=== PATIENT | female | born 1970 | race African-American/Black ===

== ENCOUNTER 2020-08-04 14:06 | Inpatient (IN) | payer OTHER ==
[~2020-08-04] VITALS: Ht 170.2 cm; Wt 130.2 kg
[2020-08-04] MEDS ORDERED: PIPERACILLIN-TAZOB 3.375GM 100 ML IV ONE (15:00)
[2020-08-04] MEDS ORDERED: MORPHINE SULFATE 4 MG/ML SYR/VIAL IV ONE (15:00)
[2020-08-04] MEDS ORDERED: SODIUM CHLORIDE 0.9% 1,000 ML IVB ONE (15:00)
[2020-08-04] MEDS ORDERED: ONDANSETRON HCL 4 MG/2 ML VIAL IV ONE (15:00)
[2020-08-04 15:24] LABS: Basophils # (auto) 0 10 ^3/uL (0-0.2); Basophils % (auto) 0.3 % (0.0-2.0); Eosinophils # (auto) 0 10 ^3/uL (0-0.8); Eosinophils % (auto) 0.3 % (0.0-7.0); Hematocrit 39.3 % (36.0-46.0); Hemoglobin 13.3 g/dL (12.2-16.2); Lymphocytes # (auto) 1.8 10 ^3/uL (0.4-5.4); Lymphocytes % (auto) 15.1 % (10.0-50.0); Mean Corpuscular Hemoglobin 28.5 pg (28.0-32.0); Mean Corpuscular Hgb Conc. 33.9 g/dL (32.0-36.0); Mean Corpuscular Volume 84.2 fL (80.0-100.0); Monocytes # (auto) 0.8 10 ^3/uL (0-1.3); Monocytes % (auto) 6.9 % (0.0-12.0); Neutrophils % (auto) 77.4 % (37.0-80.0); Nucleated Red Blood Cells % 0.2 %; Platelet Count (auto) 279 10^3/uL (140-450); Red Blood Cells 4.66 10^6/uL (4.0-5.20); Red Cell Distribution Width 14.7 % (11.8-14.3); White Blood Cell 11.6 10^3/uL (4.4-10.8)
[2020-08-04] MEDS ORDERED: LORazepam 0.5 MG TAB PO PRN (15:30)
[2020-08-04] MEDS ORDERED: MORPHINE SULF INJ 2 MG/ML SYRINGE 1ML IV PRN ×2 (15:30)
[2020-08-04] MEDS ORDERED: cefTRIAXone 1GM/50ML D5W 50 ML IV ONE ×2 (15:30→16:51)
[2020-08-04] MEDS ORDERED: metroNIDAZOLE 500MG/100ML 100 ML IV ONE (15:30)
[2020-08-04] MEDS ORDERED: NITROGLYCERIN 0.4 MG SL TAB SL PRN ×2 (15:30)
[2020-08-04] MEDS ORDERED: DOCUSATE SOD 100 MG CAP PO PRN (15:30)
[2020-08-04] MEDS ORDERED: HYDROcodone-ACET 5/325MG TAB PO PRN (15:30)
[2020-08-04] MEDS ORDERED: ACETAMINOPHEN 325 MG TAB PO PRN (15:30)
[2020-08-04] MEDS ORDERED: LACTATED RINGER'S 1,000 ML IV ONE (15:30)
[2020-08-04] MEDS ORDERED: ALUM & MAG HYDROX-SIMETH LIQ(MAALOX) 30 ML PO PRN (15:30)
[2020-08-04] MEDS ORDERED: ONDANSETRON HCL 4 MG/2 ML VIAL IV PRN (15:30)
[2020-08-04 15:33] LABS: Albumin 3.3 g/dL (3.4-5.0); Calcium 8.7 mg/dL (8.5-10.1); Potassium 4.6 mmol/L (3.5-5.1)
[2020-08-04 15:35] LABS: Urine Bacteria NONE SEEN /hpf (None Seen); Urine Blood Negative /uL (Negative); Urine Mucus FEW (None Seen); Urine Specific Gravity 1.018 (1.001-1.035); Urine WBC 1 /hpf (0 - 5)
[2020-08-04 15:36] LABS: BUN/Creatinine Ratio 11.2; Bilirubin, Total 0.7 mg/dL (0.2-1.0); Total Protein 7.7 g/dL (6.4-8.2)
[2020-08-04 15:39] LABS: INR 1.06 (0.9-1.15); Partial Thromboplastin Time 26.6 sec (23.0-31.2)
[2020-08-04] MEDS ORDERED: LACTATED RINGER'S 1,000 ML IV SCH (15:45)
[2020-08-04] MEDS ORDERED: INSUINJ2 SC (17:26)
[2020-08-04] MEDS ORDERED: IBUP800T24 PO (17:26)
[2020-08-04] MEDS ORDERED: INSREG3 SC (17:26)
[2020-08-04] MEDS ORDERED: AMLO5TAB15 PO (17:26)
[2020-08-04] MEDS ORDERED: CHOL20007 PO (17:26)
[2020-08-04] MEDS ORDERED: AMOX500C2 PO (17:26)
[2020-08-04] MEDS ORDERED: LEVO200T7 PO (17:26)
[2020-08-04] MEDS: D5W/SOD CHLO 0.9% 1,000 ML IV SCH (17:33)
[2020-08-04 18:47] LABS: Alcohol, Urine < 3.0 mg/dL (0-10); Amphetamine Screen, Urine NEGATIVE (NEGATIVE); Barbiturate Scree,Urine NEGATIVE (NEGATIVE); Benzodiazephine Screen, Urine NEGATIVE (NEGATIVE); Cannabinoid Screen, Urine NEGATIVE (NEGATIVE); Cocaine Screen, Urine NEGATIVE (NEGATIVE); Opiate Scree,Urine NEGATIVE (NEGATIVE); Phencyclidine Screen, Urine NEGATIVE (NEGATIVE)
[2020-08-04] MEDS: MORPHINE SULF INJ 2 MG/ML SYRINGE 1ML IV PRN ×2 (19:02→23:48)
[2020-08-04 19:55] LABS: Cholesterol 245 mg/dL (< 200)
[2020-08-04 20:00] LABS: HDL Cholesterol 61 mg/dL (40-59); LDL Cholesterol 154 mg/dL (< 100); Triglycerides 161 mg/dL (< 150)
--- NOTE | 2020-08-04 20:15 | NUR ---
Telemetry admit from ER DARRYNBELLE admitted to Telemetry unit after no SBAR received. Patient oriented to RYAN SABA RN primary RN, [facility] room 217B, and unit policies regarding patient care and visiting hours. Patient now on continuous telemetry monitoring, tele box #[id number] and telemetry reading on arrival to unit is 92bpm. Patient placed on room air, weighed by bedscale and encouraged to call if they need something. All questions and concerns addressed, patient verbalized understanding.
[2020-08-04] MEDS ORDERED: DEXTROSE (50%) 50ML SYRG IV PRN (20:30)
[2020-08-04] MEDS ORDERED: hydrALAZINE HCL 20 MG/ML VL IV PRN (20:45)
[2020-08-04 20:49] VITALS: BP 133/72
[2020-08-04] MEDS: metroNIDAZOLE 500MG/100ML 100 ML IV SCH (21:01)
[2020-08-04] MEDS: ATORVASTATIN 20 MG TAB PO SCH (21:02)
[2020-08-04] MEDS ORDERED: INFLUENZA QUAD 2020-2021 0.5 ML SYRG IM ONE (21:15)
[2020-08-04 21:56] VITALS: BP 133/72
[2020-08-04 22:00] VITALS: BP 133/72
[2020-08-04] MEDS ORDERED: PIPERACILLIN-TAZOB 3.375GM 100 ML IV SCH (22:00)
[2020-08-04] MEDS: IPRATROPIUM BROM 0.5 MG/2.5ML INH SOL NEB SCH (22:39)
[2020-08-04] MEDS: ACCU-CHEK COMFORT CURVE STRIP VI SCH (23:56)
[2020-08-04] MEDS: InsuLIN REG 1unit/0.01ml Soln (100units/ml) SC SCH (23:56)
[2020-08-05] MEDS: IPRATROPIUM BROM 0.5 MG/2.5ML INH SOL NEB SCH ×6 (02:29→22:16)
[2020-08-05 05:00] VITALS: BP 141/81
[2020-08-05] MEDS: D5W/SOD CHLO 0.9% 1,000 ML IV SCH ×2 (05:06→16:46)
[2020-08-05] MEDS: ACCU-CHEK COMFORT CURVE STRIP VI SCH ×4 (05:15→23:42)
[2020-08-05] MEDS: metroNIDAZOLE 500MG/100ML 100 ML IV SCH ×3 (05:16→21:26)
[2020-08-05] MEDS: InsuLIN REG 1unit/0.01ml Soln (100units/ml) SC SCH ×4 (05:26→23:42)
[2020-08-05 06:03] LABS: Basophils # (auto) 0.1 10 ^3/uL (0-0.2); Basophils % (auto) 0.6 % (0.0-2.0); Eosinophils # (auto) 0 10 ^3/uL (0-0.8); Eosinophils % (auto) 0.3 % (0.0-7.0); Hemoglobin 12.2 g/dL (12.2-16.2); Lymphocytes # (auto) 1.3 10 ^3/uL (0.4-5.4); Lymphocytes % (auto) 10.6 % (10.0-50.0); Mean Corpuscular Hemoglobin 27.9 pg (28.0-32.0); Mean Corpuscular Hgb Conc. 32.9 g/dL (32.0-36.0); Mean Corpuscular Volume 84.6 fL (80.0-100.0); Monocytes # (auto) 0.9 10 ^3/uL (0-1.3); Monocytes % (auto) 7.2 % (0.0-12.0); Neutrophils # (auto) 9.8 10 ^3/uL (1.6-8.6); Neutrophils % (auto) 81.3 % (37.0-80.0); Platelet Count (auto) 243 10^3/uL (140-450); Red Blood Cells 4.37 10^6/uL (4.0-5.20); Red Cell Distribution Width 14.6 % (11.8-14.3); White Blood Cell 12.1 10^3/uL (4.4-10.8)
[2020-08-05 06:17] LABS: BUN/Creatinine Ratio 12.8; Calcium 8.1 mg/dL (8.5-10.1); Potassium 3.7 mmol/L (3.5-5.1)
--- NOTE | 2020-08-05 06:40 | NUR ---
PATIENT OFF THE FLOOR, CURRENTLY AT PREOP. NO SIGNS OF DISTRESS OR SOB.
[2020-08-05] MEDS: LEVOTHYROXINE SODIUM 100 MCG TAB PO SCH (06:52)
[2020-08-05] MEDS ORDERED: NEOSTIGMINE 1 MG/ML INJ (10mg/10ML VIAL) IV ONE (07:18)
[2020-08-05] MEDS ORDERED: GLYCOPYRROLATE 0.2 MG/ML 1ML VIAL IV ONE (07:18)
[2020-08-05] MEDS ORDERED: ceFAZolin 1GM/50ML 50 ML IV ONE (07:18)
[2020-08-05] MEDS ORDERED: SUCCINYLCHOLINE CHLORIDE 20 MG/ML 10ML VIAL IV ONE (07:34)
[2020-08-05] MEDS ORDERED: MIDAZOLAM HCL 1MG/1ML-2 ML VIAL ONE (07:38)
[2020-08-05] MEDS ORDERED: fentaNYL CITRATE 100 MCG/2 ML VL ONE (07:38)
[2020-08-05] MEDS ORDERED: MEPERIDINE HCL (50 MG/ML) 1 ML VIAL ONE (07:39)
[2020-08-05] MEDS ORDERED: PROPOFOL 10 MG/ML 20 ML IV ONE (07:44)
[2020-08-05] MEDS ORDERED: POVIDONE IODINE 10 % TOPICAL OINT 30GM TOP ONE (08:22)
[2020-08-05 09:00] VITALS: BP 139/82
[2020-08-05] MEDS ORDERED: MORPHINE SULFATE 4 MG/ML SYR/VIAL IV PRN (09:00)
[2020-08-05] MEDS ORDERED: ACCU-CHEK COMFORT CURVE STRIP VI ONE (09:00)
[2020-08-05] MEDS ORDERED: HYDROmorphone HCL 2 MG/ML VL IV PRN (09:00)
[2020-08-05] MEDS ORDERED: KETOROLAC TROMETH 30 MG/ML 1ML VIAL IV ONE (09:00)
[2020-08-05] MEDS ORDERED: LABETALOL HCL 5 MG/ML 4ML SYRINGE IV PRN (09:00)
[2020-08-05] MEDS ORDERED: ONDANSETRON HCL 4 MG/2 ML VIAL IV PRN (09:00)
[2020-08-05] MEDS ORDERED: MIDAZOLAM HCL 1MG/1ML-2 ML VIAL IV PRN (09:00)
[2020-08-05] MEDS ORDERED: ePHEDrine SULFATE 50 MG/ML AMP IV PRN (09:00)
--- NOTE | 2020-08-05 09:50 | NUR ---
PT IN LOW FOWLERS, AWAKES UPON VERBAL COMMANDS. DROWSY. FOLLOWS COMMANDS. O2SAT: 77% ON ROOM AIR. PLACED 3LNC= O2SAT: 93% TELE MONITOR APPLIED. PT ORIENTED TO ROOM ENVIRONMENT, BED LOCKED AND IN LOWEST POSITION, CALL LIGHT WITHIN REACH. WILL CONTINUE TO MONITOR.
[2020-08-05] MEDS: CHOLECALCIFEROL (VITD3) 2,000 UNIT CAP PO SCH (10:00)
[2020-08-05] MEDS: cefTRIAXone 1GM/50ML D5W 50 ML IV SCH (10:41)
[2020-08-05] MEDS: amLODIPine BESYLATE 5 MG TAB PO SCH (10:41)
[2020-08-05] MEDS: HYDROmorphone HCL 2 MG/ML VL IV PRN ×3 (11:18→21:25)
[2020-08-05 12:28] VITALS: BP 143/80
[2020-08-05 17:03] VITALS: BP 131/73
--- NOTE | 2020-08-05 18:30 | NUR ---
PT IN LOW FOWLERS, AWAKE, ALERT, ORIENTED x4 DENIES ANY PAIN AT MOMENT. EFFORTLESS BREATHING ON 2LNC. 75ML SEROUS SANGUINEOUS FLUID FROM ROLANDO DRAIN. +BURP, + FLATUS INCISION DRESSINGS CDI, ABD BINDER IN PLACE, SCD's IN PLACE. CALL LIGHT WITHIN REACH.
--- NOTE | 2020-08-05 19:40 | NUR ---
Opening Shift Note Assumed care of patient, awake and alert. No S/S of distress/SOB or pain. Instructed on POC and to call for assist PRN. Bed in lowest locked position, call light within reach, side rails up x2, fall precautions in place. Will continue to monitor for changes Q1hr and PRN.
[2020-08-05] MEDS: ATORVASTATIN 20 MG TAB PO SCH (21:26)
[2020-08-05 22:18] VITALS: BP 133/78
[2020-08-06] MEDS: IPRATROPIUM BROM 0.5 MG/2.5ML INH SOL NEB SCH ×6 (02:15→22:49)
[2020-08-06] MEDS: D5W/SOD CHL 0.45%/KCL 20MEQ 1,000 ML IV SCH ×3 (04:30→18:03)
[2020-08-06 05:00] VITALS: BP 138/73
[2020-08-06] MEDS: metroNIDAZOLE 500MG/100ML 100 ML IV SCH ×3 (06:27→21:42)
[2020-08-06] MEDS: ACCU-CHEK COMFORT CURVE STRIP VI SCH ×4 (06:28→23:39)
[2020-08-06] MEDS: InsuLIN REG 1unit/0.01ml Soln (100units/ml) SC SCH ×4 (06:29→23:39)
[2020-08-06] MEDS: HYDROmorphone HCL 2 MG/ML VL IV PRN ×2 (06:30→12:48)
[2020-08-06] MEDS: LEVOTHYROXINE SODIUM 100 MCG TAB PO SCH (06:31)
[2020-08-06 06:53] LABS: Basophils # (auto) 0 10 ^3/uL (0-0.2); Basophils % (auto) 0.4 % (0.0-2.0); Eosinophils # (auto) 0 10 ^3/uL (0-0.8); Eosinophils % (auto) 0.3 % (0.0-7.0); Hematocrit 33.7 % (36.0-46.0); Hemoglobin 11.1 g/dL (12.2-16.2); Lymphocytes # (auto) 1.3 10 ^3/uL (0.4-5.4); Lymphocytes % (auto) 11.5 % (10.0-50.0); Mean Corpuscular Hemoglobin 28.2 pg (28.0-32.0); Mean Corpuscular Hgb Conc. 33.1 g/dL (32.0-36.0); Monocytes # (auto) 0.8 10 ^3/uL (0-1.3); Monocytes % (auto) 6.9 % (0.0-12.0); Neutrophils # (auto) 9.1 10 ^3/uL (1.6-8.6); Neutrophils % (auto) 80.9 % (37.0-80.0); Platelet Count (auto) 238 10^3/uL (140-450); Red Blood Cells 3.96 10^6/uL (4.0-5.20); Red Cell Distribution Width 14.4 % (11.8-14.3); White Blood Cell 11.2 10^3/uL (4.4-10.8)
[2020-08-06 07:16] LABS: Chloride 102 mmol/L (98-107); Potassium 3.4 mmol/L (3.5-5.1); Sodium 132 mmol/L (136-145)
[2020-08-06 07:24] LABS: Alanine Aminotransferase < 6 U/L (13-56); Albumin 2.6 g/dL (3.4-5.0); Alkaline Phosphatase 63 U/L (45-117); Anion Gap 8 (5-15); Aspartate Aminotransferase 11 U/L (15-37); BUN/Creatinine Ratio 13.5; Bilirubin, Total 0.5 mg/dL (0.2-1.0); Blood Urea Nitrogen 12 mg/dL (7-18); Calcium 8.1 mg/dL (8.5-10.1); Carbon Dioxide 22 mmol/L (21-32); GFR African American 87 mL/min; GFR Non-African American 72 mL/min; Glucose 180 mg/dL (74-106); Total Protein 6.7 g/dL (6.4-8.2)
[2020-08-06 08:48] VITALS: BP 112/65
[2020-08-06] MEDS ORDERED: POTASSIUM EFFERVESENT TAB 25 MEQ PO ONE (09:15)
[2020-08-06] MEDS: D5W/SOD CHLO 0.9% 1,000 ML IV SCH ×2 (09:28→20:47)
[2020-08-06] MEDS: cefTRIAXone 1GM/50ML D5W 50 ML IV SCH (09:29)
[2020-08-06] MEDS: amLODIPine BESYLATE 5 MG TAB PO SCH (10:47)
[2020-08-06] MEDS: CHOLECALCIFEROL (VITD3) 2,000 UNIT CAP PO SCH (10:47)
[2020-08-06] MEDS ORDERED: MEPERIDINE HCL (50 MG/ML) 1 ML VIAL IM ONE (12:00)
[2020-08-06 12:48] VITALS: BP 128/69
[2020-08-06] MEDS ORDERED: ACETAMINOPHEN/CODEINE#3 (300/30mg) TAB PO PRN (16:00)
[2020-08-06 16:47] VITALS: BP 118/69
[2020-08-06] MEDS: KETOROLAC TROMETH 30 MG/ML 1ML VIAL IV PRN (17:58)
--- NOTE | 2020-08-06 18:40 | NUR ---
AT BEDSIDE FOR MED NEB TX. PT TOLERATING WELL VIA MASK. POX ON RA 93-94%. WILL CONTINUE TO MONITOR.
--- NOTE | 2020-08-06 19:20 | NUR ---
Opening Shift Note Assumed care of patient, awake and alert. No S/S of distress/SOB or pain. Instructed on POC and to call for assist PRN. Bed in lowest locked position, call light within reach, side rails up x2. Will continue to monitor for changes Q1hr and PRN.
--- NOTE | 2020-08-06 20:10 | NUR ---
IV insertion IV access obtained, via clean sterile technique by inserting 22 gauge catheter at right forearm after 1 attempt. IV secured properly. No trauma to site. Patient tolerated procedure well. Note: Previous IV Dc'd, catheter intact, pressure dressing applied.
[2020-08-06] MEDS: ATORVASTATIN 20 MG TAB PO SCH (21:42)
--- NOTE | 2020-08-06 22:51 | NUR ---
AT BEDSIDE FOR MED [place].
[2020-08-06 23:02] VITALS: BP 133/75
[2020-08-07] MEDS: D5W/SOD CHL 0.45%/KCL 20MEQ 1,000 ML IV SCH ×2 (00:30→11:23)
[2020-08-07] MEDS: IPRATROPIUM BROM 0.5 MG/2.5ML INH SOL NEB SCH ×3 (02:29→10:44)
--- NOTE | 2020-08-07 02:31 | NUR ---
AT BEDSIDE FOR MED [place].
[2020-08-07 05:35] VITALS: BP 123/74
[2020-08-07 06:21] LABS: Basophils # (auto) 0 10 ^3/uL (0-0.2); Basophils % (auto) 0.5 % (0.0-2.0); Eosinophils # (auto) 0.2 10 ^3/uL (0-0.8); Eosinophils % (auto) 2.5 % (0.0-7.0); Hematocrit 31.6 % (36.0-46.0); Hemoglobin 10.6 g/dL (12.2-16.2); Lymphocytes # (auto) 1.2 10 ^3/uL (0.4-5.4); Lymphocytes % (auto) 18.3 % (10.0-50.0); Mean Corpuscular Hemoglobin 28.3 pg (28.0-32.0); Mean Corpuscular Hgb Conc. 33.5 g/dL (32.0-36.0); Mean Corpuscular Volume 84.5 fL (80.0-100.0); Monocytes # (auto) 0.7 10 ^3/uL (0-1.3); Neutrophils # (auto) 4.7 10 ^3/uL (1.6-8.6); Neutrophils % (auto) 68.7 % (37.0-80.0); Platelet Count (auto) 230 10^3/uL (140-450); Red Blood Cells 3.74 10^6/uL (4.0-5.20); White Blood Cell 6.8 10^3/uL (4.4-10.8)
[2020-08-07] MEDS: metroNIDAZOLE 500MG/100ML 100 ML IV SCH ×2 (06:23→14:16)
[2020-08-07] MEDS: InsuLIN REG 1unit/0.01ml Soln (100units/ml) SC SCH ×2 (06:24→12:15)
[2020-08-07] MEDS: ACCU-CHEK COMFORT CURVE STRIP VI SCH ×2 (06:24→12:15)
[2020-08-07] MEDS: LEVOTHYROXINE SODIUM 100 MCG TAB PO SCH (06:24)
[2020-08-07 06:45] LABS: BUN/Creatinine Ratio 10.3; Calcium 7.8 mg/dL (8.5-10.1); Potassium 3.3 mmol/L (3.5-5.1)
--- NOTE | 2020-08-07 07:30 | NUR ---
RECEIVED REPORT FROM NIGHT NURSE. PATIENT RESTING IN BED, NO DISTRESS NOTED. WILL CONTINUE TO MONITOR.
[2020-08-07 09:00] VITALS: BP 148/79
--- NOTE | 2020-08-07 09:50 | NUR ---
PATIENT AMBULATING IN THE HALLWAY.
[2020-08-07] MEDS: cefTRIAXone 1GM/50ML D5W 50 ML IV SCH (09:52)
[2020-08-07] MEDS: amLODIPine BESYLATE 5 MG TAB PO SCH (09:53)
[2020-08-07] MEDS: KETOROLAC TROMETH 30 MG/ML 1ML VIAL IV PRN (09:53)
[2020-08-07] MEDS ORDERED: CHOLECALCIFEROL (VITD3) 1,000UNIT=25mCg TAB PO SCH (10:00)
[2020-08-07] MEDS: D5W/SOD CHLO 0.9% 1,000 ML IV SCH (10:08)
--- NOTE | 2020-08-07 10:47 | NUR ---
DIET PATIENT TOLERATED FULL LIQUID BREAKFAST, NO NAUSEA OR VOMITING. DENIES ABDOMINAL PAIN. WILL ADVANCE DIET FOR LUNCH.
--- NOTE | 2020-08-07 12:07 | NUR ---
DR. POWERS AT BEDSIDE.
[2020-08-07 13:00] VITALS: BP 136/76
--- NOTE | 2020-08-07 14:00 | NUR ---
PATIENT TOLERATED SOFT DIET FOR LUNCH. NO NAUSEA OR VOMITING NOTED. PATIENT DENIES ABDOMINAL PAIN.
--- NOTE | 2020-08-07 16:34 | NUR ---
Discharge instructions given as ordered. Encourage to follow up with PMD as instructed. All questions and concerns addressed. Patient verbalized understanding. Medication reconciliation form completed and copy given to patient. IV removed with catheter intact, pressure dressing applied. Telemetry unit returned to ICU. Patient taken to vehicle via wheelchair with all personal belongings, accompanied by staff member. No distress noted at time of departure.
== END 2020-08-07 16:38 | disposition home or self-care (01) | DRG 342 ==
LOC: ER 14:06 → TELE 14:07 → TELE-CENTR 20:15
PROVIDERS: ADMIT Hospitalist; ATTEND Family Medicine
PROC: 0DTJ4ZZ Resection of Appendix, Percutaneous Endoscopic Approach (ICD-10-PCS; principal; 2020-08-05 07:32)
DX: K35.80 Unspecified acute appendicitis (principal); N39.0 Urinary tract infection, site not specified; E87.1 Hypo-osmolality and hyponatremia; Z68.42 Body mass index [BMI] 45.0-49.9, adult; E66.01 Morbid (severe) obesity due to excess calories; E89.0 Postprocedural hypothyroidism; E11.21 Type 2 diabetes mellitus with diabetic nephropathy; E78.5 Hyperlipidemia, unspecified; E87.6 Hypokalemia; Z20.828 Contact with and (suspected) exposure to other viral communicable diseases; F17.210 Nicotine dependence, cigarettes, uncomplicated; I10 Essential (primary) hypertension; Z79.4 Long term (current) use of insulin; Z90.710 Acquired absence of both cervix and uterus; Z88.0 Allergy status to penicillin; Z88.8 Allergy status to other drugs, medicaments and biological substances
CPT/HCPCS: 36415; 74176; 80048; 80053; 80061; 80307; 81001; 82962; 83036; 83690; 84443; 84484; 85025; 85610; 85730; 86850; 86900; 86901; 87040; 87086; 87426; 94640; 96365; 96367; 96375; G0378; J0330; J0690; J0696; J1815; J1885; J2250; J2405; J2543; J2704; J3490